=== PATIENT | male | born 1995 | race Caucasian/White ===

== ENCOUNTER 2017-02-16 02:19 | Emergency (ER) | payer OTHER ==
--- NOTE | 2017-02-16 03:17 | ER Document Report ---
ED General - General Chief Complaint: Laceration Stated Complaint: HEAD INJURY Time Seen by Provider: 02/16/17 02:46 Notes: Patient is a 21-year-old male without past medical history who presents after he was wrestling with 1 of his friends and accidentally got elbowed in the face. States he sustained a small laceration to the nose bridge and could not get it to stop bleeding so he came to the emergency department. He did apply direct pressure without success. No history of similar injury in the past. Nothing worsens her symptoms. Does note a mild, aching pain to the affected area. Denies any loss of consciousness, vomiting, weakness, numbness, or altered mental status. He does not use anti-coagulation. Past Medical History - General Information source: Patient - Social History Smoking Status: Never Smoker Frequency of alcohol use: None Drug Abuse: None Lives with: Spouse/Significant other Family History: Reviewed & Not Pertinent Renal/ Medical History: Denies: Hx Peritoneal Dialysis Review of Systems - Review of Systems Notes: Constitutional: Negative for fever. Eyes: Negative for visual changes. ENT: Negative for facial injury Cardiovascular: Negative for chest injury. Respiratory: Negative for shortness of breath. Gastrointestinal: Negative for abdominal injury. Genitourinary: Negative for genital injury Musculoskeletal: Negative for back injury. Skin: Positive for laceration/abrasions. Neurological: Negative for head injury. Physical Exam - Vital signs Vitals: Temp Pulse Resp BP 99.0 F 18 L 96 H 151/81 H 02/16/17 02:35 02/16/17 02:35 02/16/17 02:35 02/16/17 02:35 Interpretation: Normal Notes: PHYSICAL EXAMINATION: GENERAL: Well-appearing, well-nourished and in no acute distress. HEAD: Atraumatic, normocephalic. EYES: sclera anicteric, conjunctiva are normal. ENT: Moist mucous membranes. There is a small 0.5 cm laceration to the proximal central nose bridge. No septal hematoma. NECK: Normal range of motion LUNGS: Normal work of breathing HEART: 2+ radial pulses bilaterally EXTREMITIES: no pitting or edema. No cyanosis. NEUROLOGICAL: No focal neurological deficits. Moves all extremities spontaneously and on command. PSYCH: Normal mood, normal affect. SKIN: Warm, Dry, normal turgor, no rashes or lesions noted. Course - Re-evaluation Re-evalutation: 02/16/17 03:12 Patient presents with a 0.25 cm laceration over the proximal central nose bridge. No additional trauma. This was closed with Dermabond without difficulty. No focal neurologic deficits on exam, no evidence of basilar skull fracture on exam without evidence of hemotympanum, raccoon eyes, or periauricular hematoma. No papilledema. Patient is not on anticoagulation. GCS is 15. No loss of consciousness. No episodes of vomiting. Patient is therefore negative via [facility] head CT criteria and CT imaging will not be obtained at this time. No evidence of a septal hematoma. Tetanus is already up -to-date. At this time will discharge with return precautions and follow-up recommendations. Verbal discharge instructions given a the bedside and opportunity for questions given. Medication warnings reviewed. Patient is in agreement with this plan and has verbalized understanding of return precautions and the need for primary care follow-up in the next 24-72 hours. - Vital Signs Vital signs: Temp Pulse Resp BP Pulse Ox 99.0 F 18 L 96 H 151/81 H 02/16/17 02:35 02/16/17 02:35 02/16/17 02:35 02/16/17 02:35 Procedures - Laceration/Wound Repair Face Wound length (cm): 0.2 Wound's Depth, Shape: Superficial Wound explored: Clean Irrigated w/ Saline (mLs): 200 Wound Debrided: Minimal Wound Repaired With: Dermabond Discharge - Discharge Clinical Impression: Laceration of nose Qualifiers: Encounter type: initial encounter Qualified Code(s): S01.21XA - Laceration without foreign body of nose, initial encounter Condition: Good Disposition: HOME, SELF-CARE Additional Instructions: The wound has been closed with glue. Please do not pick at the at the wound. Do not cover it with any kind of antibiotic ointment as this can cause the glue to loosen. Return immediately if you develop spreading redness around the wound , pus from the wound, worsening pain, or a fever of >100.4. Keep the area clean and dry.
[2017-02-16 03:54] VITALS: BP 138/75
== END 2017-02-16 03:23 | disposition home or self-care (01) ==
LOC: ER 02:19
DX: S01.21XA Laceration without foreign body of nose, initial encounter (principal); W50.0XXA Accidental hit or strike by another person, initial encounter; Y93.72 Activity, wrestling
CPT/HCPCS: 99283